=== PATIENT | male | born 1980 | race Caucasian/White ===

== ENCOUNTER 2017-08-03 06:32 | Emergency (ER) | payer OTHER, BC ==
[~2017-08-03] VITALS: Ht 175.3 cm; Wt 106.6 kg
[~2017-08-03 06:32] MED LIST: CEPH500 PO; CLIN300 PO; COLCRYS0.6 MG PO; HYDACE5325 PO; Indomethacin50 MG PO; Percocet 5-3251 EACH PO
[2017-08-03] MEDS ORDERED: Norco 5-325 Ta1 EACH PO (08:14)
[2017-08-03] MEDS ORDERED: Zofran Odt4 MG SL (08:14)
== END 2017-08-03 08:24 | disposition home or self-care (01) ==
LOC: ER 06:32
DX: S01.01XA Laceration without foreign body of scalp, initial encounter (principal); S16.1XXA Strain of muscle, fascia and tendon at neck level, initial encounter; S43.401A Unspecified sprain of right shoulder joint, initial encounter; W22.8XXA Striking against or struck by other objects, initial encounter; Z79.899 Other long term (current) drug therapy
CPT/HCPCS: 70450; 72125; 73030; 90471; 90714; 99284

== ENCOUNTER 2017-10-10 13:10 | Emergency (ER) | payer BC ==
[~2017-10-10] VITALS: Ht 177.8 cm; Wt 104.3 kg
[~2017-10-10 13:10] MED LIST changes: +Norco 5-325 Ta1 EACH PO; +Zofran Odt4 MG SL
[2017-10-10] MEDS ORDERED: IBUP600 PO ×2 (13:41→14:44)
== END 2017-10-10 14:47 | disposition home or self-care (01) ==
LOC: ER 13:10
DX: S83.91XA Sprain of unspecified site of right knee, initial encounter (principal); W01.0XXA Fall on same level from slipping, tripping and stumbling without subsequent striking against object, initial encounter
CPT/HCPCS: 73564

== ENCOUNTER 2022-08-30 14:49 | Inpatient (IN) | payer OTHER ==
[~2022-08-30] VITALS: Ht 177.8 cm; Wt 112.5 kg
[~2022-08-30 14:49] MED LIST changes: +IBUP600 PO
[2022-08-30 15:17] LABS: BASOPHILS ABSOLUTE AUTO 0.05 K/mm3 (0.00-0.23); BASOPHILS PERCENT AUTO 0 % (0-2); EOSINOPHILS ABSOLUTE AUTO 0.01 K/mm3 (0.00-0.68); EOSINOPHILS PERCENT AUTO 0 % (0-6); Hematocrit 48.2 % (37.0-53.0); Hemoglobin 17.2 g/dL (13.5-17.5); IMMATURE GRAN ABSOLUTE AUTO 0.07 K/mm3 (0.00-0.10); IMMATURE GRAN PERCENT AUTO 0 % (0-1); LYMPHOCYTES ABSOLUTE AUTO 1.78 K/mm3 (0.84-5.20); LYMPHOCYTES PERCENT AUTO 8 % (21-46); MONOCYTES ABSOLUTE AUTO 1.68 K/mm3 (0.16-1.47); MONOCYTES PERCENT AUTO 8 % (4-13); Mean Corpuscular HGB 30.2 pg (26.0-34.0); Mean Corpuscular HGB Conc 35.7 g/dL (31.5-36.5); Mean Corpuscular Volume 85 fL (80-100); NEUTROPHILS ABSOLUTE AUTO 17.93 K/mm3 (1.96-9.15); NEUTROPHILS PERCENT AUTO 83 % (41-73); Platelet Count 209 K/mm3 (150-400); RDW Coefficient Variation 12.5 % (11.7-14.2); RDW Standard Deviation 38.1 fL (35.1-46.3); Red Blood Cell Count 5.69 M/mm3 (4.30-5.90); White Blood Cell Count 21.52 K/mm3 (4.00-11.30)
[2022-08-30 15:33] LABS: Albumin, Blood 3.8 g/dL (3.4-5.0); Albumin/Globulin Ratio 0.9 (0.8-1.8); Bilirubin, Total 1.4 mg/dL (0.1-1.0); Bun/Creatinine Ratio 16.8 (12.0-20.0); Calcium, Blood 9.4 mg/dL (8.5-10.1); Creatinine, Blood 0.65 mg/dL (0.60-1.20); Globulin, Blood 4.3 g/dL (2.2-4.0); Potassium, Blood 3.6 mmol/L (3.5-5.5); Total Protein, Blood 8.1 g/dL (6.4-8.2)
[2022-08-30 18:35] VITALS: BP 140/102
[2022-08-30 20:01] VITALS: BP 133/76
[2022-08-31] VITALS (16 sets, daily range): BP systolic 114–155; BP diastolic 71–98
--- NOTE | 2022-08-31 08:26 | NUR ---
SUMMARY PT REQUIRED IV AND PO MEDS FOR PAIN. NPO PREOP FOR TODAY.
--- NOTE | 2022-08-31 11:48 | NUR ---
08/31/22 Sarah7 Miladys Hargrove PT ON SCHEDULED ANTIBIOTICS
--- NOTE | 2022-08-31 13:40 | NUR ---
PACU TO PT WAS BROUGHT BACK TO HIS ROOM () FROM PACU VIA GURNEY, TRANSFERRED TO HIS BED VIA SLIDER SHEET AND 3 STAFF ASSIST. EXTRA BEDDING REMOVED FROM UNDER HIM AND HE WAS BOOSTED IN BED. ABD ASSESSED, 3 LAPS WITH STERI STRIPS C/D/I, ABD SOFT NON TENDER, RENAL TECHNICIAN REPORTED LOCAL ANESTHETIC BEING USED AND NO PAIN MEDICATIONS GIVEN IN PACU, PT REPORTS PAIN TOLERABLE AT THIS TIME AT 6/10 ON O-10 PAIN SCALE. ICE WATER AND JELLO PROVIDED, HARD SCRIPTS GIVEN TO PATIENTS WHO WAS ALSO EDUCATED ON LIMITED PHARMACY AVAILABILITY TODAY WITH IT BEING THURSDAY AND SOME NOT BEING OPEN AND OTHERS HAVING SHORTER HOURS OF OPERATION TODAY. PT AND HIS UPDATED ON PLAN OF CARE FOR THE REST OF THIS SHIFT. NO QUESTIONS AT THIS TIME, FIRST SET OF POST OP VITALS OBTAINED.
[2022-08-31] MEDS ORDERED: LISI5 PO (14:26)
--- NOTE | 2022-08-31 20:08 | NUR ---
SHIFT SUMMARY POD0 LAP APPY, A/X4, VSS, TOLERATING PO, ABLE TO AMBULATE TO THE BATHROOM WITH OUT ASSISTANCE THOUGH HE WAS OBSERVED DURING HIS FIRST WALK, INCISION SITES REMAIN C/D/I, PRESCRIPTIONS ALREADY GIVEN TO HIS TO HAVE THEM FILLED. NO OTHER EVENTS THIS SHIFT, CALL LIGHT IN REACH, REPORT GIVEN TO MARIO SENIOR.
--- NOTE | 2022-08-31 20:45 | NUR ---
BLOOD IN URINE PT REPORTS PRIOR TO SURGERY, HE VOIDED BLOOD. PT INFORMS "ALOT OF BLOOD, WITH ODOR OF IRON" PT AND REPORTS THEY WERE GOING TO TELL STAFF BUT FORGOT DUE TO EVENTS PRIOR TO SURGERY. PT REPORTS ONLY ONE TIME AND CURRENTLY NO BLOOD. THIS NURSE VISUALIZED YELLOW URINE IN TOILET. PT DENIES HX OF KIDNEY STONES OR PAIN DURING URINATION.
[2022-09-01 03:52] VITALS: BP 131/78
[2022-09-01 03:55] LABS: BASOPHILS ABSOLUTE AUTO 0.03 K/mm3 (0.00-0.23); BASOPHILS PERCENT AUTO 0 % (0-2); EOSINOPHILS PERCENT AUTO 0 % (0-6); Hematocrit 39.2 % (37.0-53.0); IMMATURE GRAN ABSOLUTE AUTO 0.09 K/mm3 (0.00-0.10); IMMATURE GRAN PERCENT AUTO 1 % (0-1); LYMPHOCYTES ABSOLUTE AUTO 1.17 K/mm3 (0.84-5.20); LYMPHOCYTES PERCENT AUTO 7 % (21-46); MONOCYTES PERCENT AUTO 5 % (4-13); Mean Corpuscular HGB 30.6 pg (26.0-34.0); Mean Corpuscular HGB Conc 35.7 g/dL (31.5-36.5); Mean Corpuscular Volume 86 fL (80-100); Mean Platelet Volume 9.5 fL (9.1-12.4); NEUTROPHILS ABSOLUTE AUTO 13.95 K/mm3 (1.96-9.15); NEUTROPHILS PERCENT AUTO 87 % (41-73); Platelet Count 164 K/mm3 (150-400); RDW Coefficient Variation 12.3 % (11.7-14.2); RDW Standard Deviation 38.1 fL (35.1-46.3); Red Blood Cell Count 4.57 M/mm3 (4.30-5.90); White Blood Cell Count 16.04 K/mm3 (4.00-11.30)
--- NOTE | 2022-09-01 06:12 | NUR ---
SHIFT SUMMARY POD1 APPY, 3 ABD LAP INCISION STERI STRIPS C/D/I, ABD TENDER TO PALPATATION, MEDICATED X3 T/O NIGHT. MINIMAL SLEEP. PT DENIES N/T, SOB, OR DIZZINESS. PT NAUSEATED EARLY IN SHIFT, MEDICATED W/ ZOFRAN AND NO FURTHER COMPLAINTS. HAD SANDWICH AND PUDDING DURING NIGHT, TOLERATED WELL. PT INDEPENDANT TO BATHROOM, URINATING WELL, REPORTS SOME FLATUS. PT HOPES FOR DC THIS MORNING.
[2022-09-01 06:53] VITALS: BP 133/88
--- NOTE | 2022-09-01 08:15 | NUR ---
ASSUMPTION OF CARE PT S/P LAP APPY, POD 1. AOX4. VSS. REPORTS THAT PAIN IS TOLERABLE /, PLAN IS TO MEDICATE PER EMAR PRN. TOLERATING PO INTAKE, NO N/V. ABD LAP SITES X3 C/D/I. VOIDING. PT WANTS TO SHOWER THIS MORNING, WILL CALL FOR ASSIST WHEN READY. IND IN RM, CALLS PRN FOR ASSIST. & DAUGHTER AT BEDSIDE. NO NEEDS AT THIS TIME. CALL LIGHT IN REACH.
[2022-09-01] MEDS ORDERED: HYDROCODONE-AC1 EA10 PO (13:04)
[2022-09-01] MEDS ORDERED: AMOCLA875 PO (13:05)
--- NOTE | 2022-09-01 13:15 | NUR ---
DISCHARGE SUMMARY S/P LAP APPY, POD 1. VSS. AOX4. PAIN TOLERABLE W/ PRESCRIBED MEDICATION. TOLERATING PO INTAKE, NO N/V. VOIDING. ABD LAP SITES X3, C/D/I. IND W/ CARE & AMBULATING IN . BOTH PT & AGREE W/ DC PLAN, EDUCATION PROVIDED TO BOTH. WC TRANSFER OFFERED, PT DECLINED. PT IND AMBULATED FROM UNIT TO PERSONAL VEHICLE W/ .
--- NOTE | 2022-09-01 13:34 | NUR ---
REVIEWED SN DOCUMENTATION.
== END 2022-09-01 13:17 | disposition home or self-care (01) | DRG 340 ==
LOC: ER 14:49 → SURS 18:02
PROVIDERS: Emergency Medicine; ADMIT Surgery
PROC: 0DTJ4ZZ Resection of Appendix, Percutaneous Endoscopic Approach (ICD-10-PCS; principal; 2022-08-31 11:00)
DX: K35.32 Acute appendicitis with perforation, localized peritonitis, and gangrene, without abscess (principal); I10 Essential (primary) hypertension; E66.9 Obesity, unspecified; Z98.890 Other specified postprocedural states; Z68.36 Body mass index [BMI] 36.0-36.9, adult
CPT/HCPCS: 36415; 74177; 80053; 83690; 85025; 88304; 96361; 96365-59; 96367; 96375; 99285-25; A9270; J0295; J0696; J1100; J1885; J2250; J2270; J2405; J2704; J3010; J7030; J7120; Q9967

== ENCOUNTER → 2023-09-22 | Outpatient (CLI) | payer OTHER ==
[~2023-09-22] MED LIST changes: +AMOCLA875 PO; +HYDROCODONE-AC1 EA10 PO; +LISI5 PO
[2023-09-22 19:48] LABS: Albumin/Globulin Ratio 1.2 (0.8-1.8); Bilirubin, Total 0.6 mg/dL (0.1-1.0); Bun/Creatinine Ratio 18.7 (12.0-20.0); Calcium, Blood 8.8 mg/dL (8.5-10.1); Creatinine, Blood 0.86 mg/dL (0.60-1.20); Globulin, Blood 3.3 g/dL (2.2-4.0); Percent Saturation 22.8 % (20.0-50.0); Potassium, Blood 4.2 mmol/L (3.5-5.5); Total Protein, Blood 7.3 g/dL (6.4-8.2)
== END ==
LOC: LAB 17:40 → LAB SHORT 17:40
PROVIDERS: Nurse Practitioner Family
DX: E78.1 Pure hyperglyceridemia (principal); I10 Essential (primary) hypertension; R79.89 Other specified abnormal findings of blood chemistry; R94.5 Abnormal results of liver function studies
CPT/HCPCS: 80053; 82728; 82977; 83540; 83550